=== PATIENT | female | born 1965 | race Caucasian/White ===

== ENCOUNTER 2017-02-01 12:38 | Emergency (ER) | payer OTHER ==
--- NOTE | 2017-02-01 13:03 | PDOC ---
History of Present Illness - General Stated Complaint: BACK PAIN Time Seen by Provider: 02/01/17 13:01 History Source: Patient Exam Limitations: No Limitations - History of Present Illness Initial Comments: 51 yo F history HTN presents with low back pain. She states she was helping to move a door yesterday (was replacing front storm door), felt low back pain afterwards which has progressively worsened since then. No direct trauma. Pain is worse with movement, better with rest. She was unable to find a comfortable position to sleep last night. She took motrin 800 mg at 3am, otherwise no other medication. Pain is moderate to severe, left low back, nonradiating. Past History - Past Medical History Allergies/Adverse Reactions: Allergies Allergy/AdvReac Type Severity Reaction Status Date / Time No Known Drug Allergies Allergy Verified 02/02/13 13:21 Home Medications: Ambulatory Orders Lisinopril [Prinivil] 10 mg PO DAILY 02/02/13 Losartan/Hydrochlorothiazide [Losartan-Hctz 100-25 mg Tab] 1 each PO DAILY 02/02 l-Norgest/E.estradiol-E.estrad [Seasonique 0.15-0.03-0.01 Tab] 1 each PO DAILY 02/02/13 Ibuprofen [Motrin -] 600 mg PO TID #21 tablet 02/01/17 Methocarbamol [Robaxin -] 500 mg PO BID #14 tablet 02/01/17 Oxycodone HCl/Acetaminophen [Percocet 5-325 mg Tablet] 1 - 2 tab PO Q6H PRN #20 tab MDD 8 tabs 02/01/17 Anemia: No Asthma: Yes (NOT SINCE CHILDHOOD) Cancer: No Cardiac Disorders: No CVA: No COPD: No CHF: No Dementia: No Diabetes: No GI Disorders: Yes (TREAT WITH OTC FOR HEARTBURN) Disorders: No HTN: Yes Hypercholesterolemia: Yes (NOT CURRENTLY ON MEDS) Liver Disease: No Seizures: No Thyroid Disease: No - Surgical History Abdominal Surgery: No Appendectomy: No Cardiac Surgery: No Cholecystectomy: Yes () Lung Surgery: No Neurologic Surgery: No Orthopedic Surgery: Yes (BILATERAL CARPAL TUNNEL 2009,2010) - Suicide/Smoking/Psychosocial Hx Smoking History: Never smoked Have you smoked in the past 12 months: No Hx Alcohol Use: Yes (SOCIALLY) Drug/Substance Use Hx: No Substance Use Type: Alcohol Hx Substance Use Treatment: No Review of Systems - Review of Systems Able to Perform ROS?: Yes Comments:: GENERAL/CONSTITUTIONAL: No fever or chills. No weakness. HEAD, EYES, EARS, NOSE AND THROAT: No change in vision. No ear pain or discharge. No sore throat. CARDIOVASCULAR: No chest pain or shortness of breath. RESPIRATORY: No cough, wheezing, or hemoptysis. GASTROINTESTINAL: No nausea, vomiting, diarrhea or constipation. GENITOURINARY: No dysuria, frequency, or change in urination. MUSCULOSKELETAL: No joint or muscle swelling or pain. No neck pain. +Low back pain. SKIN: No rash NEUROLOGIC: No headache, vertigo, loss of consciousness, or change in strength/ sensation. ENDOCRINE: No increased thirst. No abnormal weight change. HEMATOLOGIC/LYMPHATIC: No anemia, easy bleeding, or history of blood clots. ALLERGIC/IMMUNOLOGIC: No hives or skin allergy. *Physical Exam - Physical Exam Comments: GENERAL: Awake, alert, and fully oriented, in no acute distress HEAD: No signs of trauma EYES: PERRLA, EOMI, sclera anicteric, conjunctiva clear ENT: Auricles normal inspection, hearing grossly normal, nares patent, oropharynx clear without exudates. Moist mucosa NECK: Normal ROM, supple, no lymphadenopathy, JVD, or masses LUNGS: Breath sounds equal, clear to auscultation bilaterally. No wheezes, and no crackles HEART: Regular rate and rhythm, normal S1 and S2, no murmurs, rubs or gallops ABDOMEN: Soft, nontender, normoactive bowel sounds. No guarding, no rebound. No masses EXTREMITIES: Normal range of motion, no edema. No clubbing or cyanosis. No cords , erythema, or tenderness NEUROLOGICAL: Cranial nerves II through XII grossly intact. Normal speech. + Antalgic gait SKIN: Warm, Dry, normal turgor, no rashes or lesions noted. SPINE: No midline tenderness. +L lumbar soft tissue paraspinal tenderness. Medical Decision Making - Medical Decision Making 02/01/17 14:51 Pt reports improvement s/p NSAID, percocet, and robaxin. Stable for DC home. *DC/Admit/Observation/Transfer Diagnosis at time of Disposition: Lumbar strain Qualifiers: Encounter type: initial encounter Qualified Code(s): S39.012A - Strain of muscle, fascia and tendon of lower back, initial encounter - Discharge Dispostion Disposition: HOME Condition at time of disposition: Stable Admit: No - Prescriptions Prescriptions: Ibuprofen [Motrin -] 600 mg PO TID #21 tablet Oxycodone HCl/Acetaminophen [Percocet 5-325 mg Tablet] 1 - 2 tab PO Q6H PRN #20 tab MDD 8 tabs PRN Reason: Severe Pain Methocarbamol [Robaxin -] 500 mg PO BID #14 tablet - Patient Instructions Printed Discharge Instructions: DI for Low Back Pain
[2017-02-01] MEDS ORDERED: IBUPROFEN 600 MG TABLET (FP) PO ONE ×2 (13:11→13:22)
[2017-02-01] MEDS ORDERED: METHOCARBAMOL 500 MG TABLET PO ONE (13:12)
[2017-02-01] MEDS ORDERED: METHOCARBAMOL 500 MG TABLET ONE (13:21)
[2017-02-01 13:35] VITALS: BP 128/80; PULSE 80; TEMP 97.9; BMI 29.2
== END 2017-02-01 15:17 | disposition home or self-care (01) ==
LOC: FER 12:38
DX: S39.012A Strain of muscle, fascia and tendon of lower back, initial encounter (principal); X58.XXXA Exposure to other specified factors, initial encounter; Y93.9 Activity, unspecified; Y92.9 Unspecified place or not applicable; I10 Essential (primary) hypertension
CPT/HCPCS: 99282-25